=== PATIENT | male | born 2000 | race Caucasian/White ===

== ENCOUNTER 2024-07-22 12:11 | Emergency (ER) | payer MEDICAID ==
[~2024-07-22] VITALS: Ht 172.7 cm; Wt 80.0 kg
[2024-07-22 12:13] VITALS: O2SAT 99
[2024-07-22] MEDS ORDERED: IBUP-1525 MT (17:07)
[2024-07-22] MEDS ORDERED: TOPUD MT (17:07)
[2024-07-22 17:17] VITALS: BP 140/87; PULSE 62; RESP 18; TEMP 36.61404; O2SAT 99
== END 2024-07-22 17:17 | disposition home or self-care (01) ==
LOC: ER 12:11
DX: S61.011A Laceration without foreign body of right thumb without damage to nail, initial encounter (principal); X58.XXXA Exposure to other specified factors, initial encounter; Y93.89 Activity, other specified; Y92.89 Other specified places as the place of occurrence of the external cause; Y99.8 Other external cause status
CPT/HCPCS: 73130; 12002; 99283; Z7610